=== PATIENT | female | born 1980 | race African-American/Black ===

== ENCOUNTER 2021-04-15 03:59 | Inpatient (IN) | payer OTHER ==
[~2021-04-15] VITALS: Ht 162.6 cm; Wt 90.3 kg
[2021-04-15 04:24] LABS: BILIRUBIN NEGATIVE (NEGATIVE); BLOOD NEGATIVE Ery/uL (NEGATIVE); CLARITY CLEAR (CLEAR); COLOR YELLOW (YELLOW); GLUCOSE (U) NORMAL (NORMAL); LEUKOCYTES 1+ Leu/uL (NEGATIVE); NITRITE NEGATIVE (NEGATIVE); PROTEIN NEGATIVE (NEGATIVE); UROBILINOGEN 0.2 mg/dL (0.2-1.0)
[2021-04-15 04:30] LABS: BACTERIA TRACE; URINARY RBC RARE
[2021-04-15 04:31] LABS: AMORPHOUS URATES CRYSTALS MODERATE
[2021-04-15 04:54] LABS: HCT 30.9 % (37.0-47.0); HGB 10.4 g/dl (12.5-16.0); MCH 32.6 pg (25.0-31.0); MCHC 33.7 g/dL (32.0-36.0); MCV 96.9 fL (78.0-100.0); MPV 12.9 fL (6.0-9.5); RBC 3.19 M/uL (4.20-5.40); WBC 10.6 K/uL (4.0-10.5)
[2021-04-15 04:54] LABS: AMPHETAMINES NEGATIVE (NEGATIVE); BARBITURATES NEGATIVE (NEGATIVE); ECSTASY (MDMA) NEGATIVE (NEGATIVE); MARIJUANA (THC) NEGATIVE (NEGATIVE); METHADONE NEGATIVE (NEGATIVE); OPIATES NEGATIVE (NEGATIVE); OXYCODONE NEGATIVE (NEGATIVE)
[2021-04-16 05:46] LABS: HCT 31.4 % (37.0-47.0); HGB 10.4 g/dl (12.5-16.0); MCHC 33.1 g/dL (32.0-36.0); MCV 96.6 fL (78.0-100.0); MPV 13.4 fL (6.0-9.5); RBC 3.25 M/uL (4.20-5.40); RDW 14.1 % (11.5-14.0); WBC 12.5 K/uL (4.0-10.5)
--- NOTE | 2021-04-17 14:38 | NUR ---
MET WITH PT AND FOB A RESULT OF REFERRAL FOR POS DRUG SCREENS DURING AND D/C RESOURCES. MOTHER IS A 38 YEAR OLD. APPROX 10 YEARS AGO SHE HAD TWO CHILDREN TO IN A HOUSE FIRE. BORN 2004 ADN 2012. SHE HAD AN IN 2016 OF WHICH SHE GAVE UP FOR ADOPTION. MOTHER HAS A DRUG HISTORY AND HAS BEEN INCARCERATED NUMEROUS TIMES WELL. SHE HAS ALSO BEEN HOMELESS. SHE REPORTED THAT SHE SPENT SOME TIME AT [facility] IN [place], BUT CAN'T REMEMBER THE TIME. 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 CURRENTLY SHE HAS GIVEN TO A 5 LB 15 OZ GIRL. THE FOB IS MELIMARILYNN KRISTINA. MS. WONG RESIDES WITH MR. ACEVEDO IN A 3 BEDROOM HOME WITH MODERN CONVIENCES IN [place]. MR. ACEVEDO HAS CUSTODY OF TWO OF HIS CHILDREN AGES 13 AND 9. MOTHER TEST POS 10/30/20 FOR THC, 03/2021 FOR THC AND COCAINE AND 04/12/21. THE BABY'S CORD BLOOD HAS BEEN SENT FOR ANAYLSIS. MOTHER DECLINED A REFERRAL TO HANDS AND KIDS NOW. THE STACI ROTHMAN STATED THAT MOTHER APPEARS TO BE BONDING WITH INFANT AND REPORTS NO CONCERNS WITH INFANT CARE. I OBSERVED MOTHER PREPARING INFANTS BOTTLE AND HOLDING AND CARING FOR HER. DUE TO PT. DRUG HISTORY AND POS DRUG SCREENS A [facility]PS REFERRAL WAS MADE TO [facility]. REFERRAL NUMBER IS [id number].
--- NOTE | 2021-04-17 17:35 | NUR ---
MET WITH CPS WORKER, BARBIE. SHE ADVISED THAT THE REFERRAL HAD BEEN ACCEPTED AND THAT SHE WOULD BE GOING TO THE PATIENT'S HOME THEY HAVE BEEN DISCHARGED.
== END 2021-04-17 12:45 | disposition home or self-care (01) | DRG 806 ==
LOC: FOD 03:59 → FOB 03:59 → FOD 04:34 → FOB 04:35
PROVIDERS: Obstetrics & Gynecology; ADMIT Obstetrics & Gynecology
PROC: 10E0XZZ Delivery of Products of Conception, External Approach (ICD-10-PCS; principal; 2021-04-15)
DX: O9A.12 Malignant neoplasm complicating childbirth (principal); D62 Acute posthemorrhagic anemia; Z37.0 Single live birth; O99.02 Anemia complicating childbirth; Z3A.38 38 weeks gestation of pregnancy; C50.911 Malignant neoplasm of unspecified site of right female breast; E66.9 Obesity, unspecified; O99.892 Other specified diseases and conditions complicating childbirth; R82.71 Bacteriuria; Z20.822 Contact with and (suspected) exposure to COVID-19; O99.52 Diseases of the respiratory system complicating childbirth; J45.909 Unspecified asthma, uncomplicated; O99.324 Drug use complicating childbirth; Z59.0 Homelessness
CPT/HCPCS: 36415; 80305; 81001; 84112; 86900; 86901; J2300; J7120; U0002